=== PATIENT | female | born 1970 | race Caucasian/White ===

== ENCOUNTER 2021-07-02 18:20 | Emergency (ER) | payer BC ==
[2021-07-02 19:32] LABS: HEMOGLOBIN 13.2 gm/dl (12.3-15.3); RED BLOOD COUNT 4.37 M/UL (4.00-5.10); WHITE BLOOD COUNT 8.3 K/UL (4.5-11.0)
== END 2021-07-02 19:56 | disposition home or self-care (01) ==
LOC: ER1 18:20
PROVIDERS: Physician Assistant
DX: L76.22 Postprocedural hemorrhage of skin and subcutaneous tissue following other procedure (principal); Y83.8 Other surgical procedures as the cause of abnormal reaction of the patient, or of later complication, without mention of misadventure at the time of the procedure; K21.9 Gastro-esophageal reflux disease without esophagitis; Z79.82 Long term (current) use of aspirin
CPT/HCPCS: 85025; 99283